=== PATIENT | male | born 1950 | race Caucasian/White ===

== ENCOUNTER → 2025-10-09 | Outpatient (CLI) | payer MEDICARE, OTHER, SELFPAY ==
--- NOTE | 2025-10-09 14:11 | XR_ITS ---
Examination: Bilateral hips, AP pelvis, 5 views Technique: AP, lateral views both hips, AP pelvis, 5 views Exam date and time: October 09, 2025, 1423 hours INDICATIONS: Right hip pain beginning 8 months ago. FINDINGS: Advanced right hip osteoarthritis Sclerosis and fragmentation right femoral head consistent with significant avascular necrosis Mild left hip osteoarthritis No hip or pelvic fracture Prominent osteopenia IMPRESSION: Advanced right hip osteoarthritis Significant avascular necrosis right femoral head
== END | disposition home or self-care (01) ==
LOC: CDIM 13:58
PROVIDERS: PCP Family Medicine; Referring Provider Family Medicine; Visit Provider Family Medicine
DX: M16.11 Unilateral primary osteoarthritis, right hip (principal); M87.851 Other osteonecrosis, right femur
CPT/HCPCS: 73523